=== PATIENT | male | born 1950 | race Caucasian/White ===

== ENCOUNTER 2018-02-07 05:50 | Day surgery (SDC) | payer OTHER ==
[~2018-02-07] VITALS: Ht 162.6 cm; Wt 80.7 kg
[2018-02-07] MEDS ORDERED: NS IRRIG SOLN 1000 ML IR ONE (06:40)
[2018-02-07] MEDS ORDERED: CEFAZOLIN 2 GM IVPB PREMIX 50 ML IV ONE (06:40)
[2018-02-07] MEDS ORDERED: ONDANSETRON HCL 4 MG/2 ML VIAL IVP ONE (06:40)
[2018-02-07] MEDS ORDERED: OXYMETAZOLINE HCL 0.05% NASAL SPRAY NS ONE (06:40)
[2018-02-07] MEDS ORDERED: LR 1,000 ML IV.SOLN IV ONE (06:40)
[2018-02-07] MEDS ORDERED: KETOROLAC TROMETHAMINE 30 MG VIAL IVP ONE (06:40)
[2018-02-07] MEDS ORDERED: SEVOFLURANE 15 MIN GAS INH ONE (06:40)
[2018-02-07] MEDS ORDERED: PROPOFOL 200MG/ 20ML VIAL (DIPRIVAN) IV ONE (06:40)
[2018-02-07] MEDS ORDERED: fentaNYL CITRATE 250 MCG/5 ML AMP IV ONE (06:40)
[2018-02-07] MEDS ORDERED: ROCURONIUM BROMIDE 10 MG/ML (ZEMURON) IV ONE (06:40)
[2018-02-07] MEDS ORDERED: MIDAZOLAM HCL 5 MG/5 ML VIAL IVP ONE (06:40)
[2018-02-07] MEDS ORDERED: DEXAMETHASONE SOD PHOSPHATE 4 MG/ML VIAL IVP ONE (06:40)
[2018-02-07] MEDS ORDERED: LR 1,000 ML IV SCH (07:55)
[2018-02-07] MEDS ORDERED: MORPHINE 4 MG/ML INJ. SYRINGE IVP PRN (08:00)
[2018-02-07] MEDS ORDERED: MEPERIDINE HCL/PF 25 MG/ML DISP.SYRIN IVP PRN (08:00)
[2018-02-07] MEDS ORDERED: HYDROcodone/ACETAMIN 5-325 MG TAB (NORCO/ VICODIN) PO PRN (09:00)
[2018-02-07 09:40] VITALS: BP_SYST 132
== END 2018-02-07 11:00 | disposition home or self-care (01) ==
LOC: SMU 05:50 → SDS 05:50
PROVIDERS: ATTEND Otolaryngology Plastic Surgery within the Head & Neck
DX: J01.90 Acute sinusitis, unspecified (principal); J32.9 Chronic sinusitis, unspecified; J33.8 Other polyp of sinus; E66.9 Obesity, unspecified
CPT/HCPCS: 88305; 88311; A4649; C1726; J0690; J1100; J1885; J2250; J2405; J2704; J3010; J7120